=== PATIENT | female | born 1980 | race Caucasian/White ===

== ENCOUNTER 2020-01-11 19:12 | Emergency (ER) | payer OTHER ==
[~2020-01-11] VITALS: Ht 165.1 cm; Wt 52.3 kg
[~2020-01-11 19:12] MED LIST: DOCU-131 PO; HYDR-3240 PO; IBUP-1222 PO
--- NOTE | 2020-01-11 19:33 | NUR ---
Assumed care of patient. C/O sore throat, CRONIN, and N/V. Hx migraines, but states this is worse than normal. +photosensitivity. SO at bedside. Will continue to monitor.
[2020-01-11] MEDS ORDERED: KETOROLAC 30 MG/1 ML ONE (19:45)
[2020-01-11] MEDS ORDERED: ONDANSETRON 2MG/ML, 2ML ONE (19:45)
[2020-01-11] MEDS ORDERED: KETOROLAC 30 MG/1 ML IVPush ONE (20:00)
[2020-01-11] MEDS ORDERED: MORPHINE SULFATE 4 MG/ML, 1ML IVPush PRN (20:00)
[2020-01-11] MEDS ORDERED: SODIUM CHLORIDE 0.9% 1,000ML IVBOLUS ONE (20:00)
[2020-01-11] MEDS ORDERED: SODIUM CHLORIDE FLUSH 10ML SYR IVF ONE (20:00)
[2020-01-11] MEDS ORDERED: ONDANSETRON 2MG/ML, 2ML IVPush ONE (20:00)
[2020-01-11] MEDS ORDERED: METOCLOPRAMIDE 5 MG/ML, 2ML ONE (20:14)
[2020-01-11] MEDS ORDERED: METOCLOPRAMIDE 5 MG/ML, 2ML IVPush ONE (20:30)
--- NOTE | 2020-01-11 20:40 | NUR ---
Patient reports improved CRONIN. Wants to go home.
[2020-01-11 20:58] VITALS: BP 107/71
--- NOTE | 2020-01-11 21:00 | NUR ---
Patient/Caregiver given discharge instructions and they have confirmed that they understand the instructions. Patient ambulatory with steady gait.
== END 2020-01-11 21:03 | disposition home or self-care (01) ==
LOC: ED 20:30
DX: G43.909 Migraine, unspecified, not intractable, without status migrainosus (principal); R11.2 Nausea with vomiting, unspecified; E86.0 Dehydration; R50.9 Fever, unspecified
CPT/HCPCS: 96374; 96375; 99284; J1885; J2765; J7030